=== PATIENT | male | born 1990 | race Caucasian/White ===

== ENCOUNTER 2018-01-04 02:06 | Emergency (ER) | payer BC, OTHER ==
[2018-01-04 02:28] VITALS: BP 142/83
--- NOTE | 2018-01-04 02:46 | EDM.PDOC ---
ED HPI GENERAL MEDICAL PROBLEM - General Chief Complaint: ENT Problem Stated Complaint: TOOTHACHE Time Seen by Provider: 01/04/18 02:30 Source of Information: Reports: Patient History Limitations: Reports: No Limitations - History of Present Illness INITIAL COMMENTS - FREE TEXT/NARRATIVE: 27-year-old male with left-sided jaw pain intermittently over the last several weeks has become more uncomfortable with her persistent intense pain over the left upper and lower jaw, more on the upper but radiating up towards the ear. No fever, chills or swelling, no erythema. Onset: Gradual Duration: Week(s): (Developing for the last 2 weeks but much worse over the past 12 hours) Location: Reports: Head, Face Severity: Moderate Associated Symptoms: Reports: No Other Symptoms Left Lower Tooth/Teeth Pain Score (Numeric/FACES): 10 - Related Data Allergies Allergy/AdvReac Type Severity Reaction Status Date / Time No Known Allergies Allergy Verified 01/04/18 02:21 Home Meds: Home Meds NK [No Known Home Meds] 01/04/18 [History] Past Medical History - Past Health History Medical/Surgical History: Denies Medical/Surgical History Gastrointestinal History: Reports: Other (See Below) Other Gastrointestinal History: Lacerated spleen Psychiatric History: Reports: Panic Attack - Infectious Disease History Infectious Disease History: Reports: Chicken Pox Social & Family History - Tobacco Use Smoking Status *Q: Never Smoker Second Hand Smoke Exposure: No - Caffeine Use Caffeine Use: Reports: Coffee, Energy Drinks, Soda, Tea - Recreational Drug Use Recreational Drug Use: No ED ROS ENT - Review of Systems Review Of Systems: See Below Constitutional: Denies: Fever, Chills HEENT: Denies: Ear Pain, Eye Pain, Throat Swelling, Vision Change Respiratory: Denies: Shortness of Breath GI/Abdominal: Denies: Nausea, Vomiting ED EXAM, ENT - Physical Exam Exam: See Below Exam Limited By: No Limitations General Appearance: Alert, No Apparent Distress (Looks uncomfortable but not distressed) Ears: Normal TMs (Left tympanic membrane is normal, he does have some sensitivity to percussion of the facial nerve.) Mouth/Throat: Other (Several caries are evident, no significant gingival erythema or swelling. He responds to discomfort with percussion of the second molar of the maxilla on the left side.) Course - Vital Signs Last Recorded V/S: Last Vital Signs Temp 96.9 F 01/04/18 02:26 Pulse 61 01/04/18 02:26 Resp 16 01/04/18 02:26 BP 142/83 H 01/04/18 02:26 Pulse Ox 98 01/04/18 02:26 - Re-Assessments/Exams Free Text/Narrative Re-Assessment/Exam: 01/04/18 02:45 Patient will be placed on penicillin VK 500 mg 4 times a day and also given 10 Percocet to take along with ibuprofen for pain control. I think a dental recheck in 2-3 days with dental x-rays would be warranted. Return sooner if worsening such as swelling, erythema or fever. Departure - Departure Time of Disposition: 02:52 Disposition: Home, Self-Care 01 Condition: Good Clinical Impression: Facial pain, acute - Discharge Information Instructions: Pain Without a Known Cause Referrals: PCP,None [Primary Care Provider] - Forms: ED Department Discharge Care Plan Goals: Take penicillin 4 times a day for at least the next 7-10 days, recheck with the dentist office in the next 2-4 days. Ibuprofen should help with pain and add stronger pain medication if needed. Return sooner if worsening such as swelling or fever, or worsening pain despite treatment.
== END 2018-01-04 02:52 | disposition home or self-care (01) ==
LOC: JP.ED 02:06
DX: R68.84 Jaw pain (principal)
CPT/HCPCS: 99283

== ENCOUNTER 2018-07-25 18:06 | Emergency (ER) | payer BC ==
[2018-07-25 18:18] VITALS: BP 159/93
--- NOTE | 2018-07-25 18:46 | EDM.PDOC ---
<Snehal Jeffers M - Last Filed: 07/25/18 19:43> ED HPI GENERAL MEDICAL PROBLEM - General Chief Complaint: Gastrointestinal Problem Stated Complaint: DIZZY/ ABDOMINAL PAIN Time Seen by Provider: 07/25/18 18:30 Source of Information: Reports: Patient History Limitations: Reports: No Limitations - History of Present Illness Onset: Gradual Location: Reports: Abdomen (abdominal pain moved from central to right upper quadrant) Quality: Reports: Pressure (to occipatial region of head; feeling anxious ) Improves with: Reports: None Right Lower Abdomen Pain Score (Numeric/FACES): 2 - Related Data Allergies Allergy/AdvReac Type Severity Reaction Status Date / Time No Known Allergies Allergy Verified 07/25/18 18:47 Home Meds: Home Meds NK [No Known Home Meds] 01/04/18 [History] Past Medical History - Past Health History Medical/Surgical History: Denies Medical/Surgical History HEENT History: Reports: Impaired Vision Gastrointestinal History: Reports: Other (See Below) Other Gastrointestinal History: Lacerated spleen Psychiatric History: Reports: Panic Attack - Infectious Disease History Infectious Disease History: Reports: Chicken Pox, Other (See Below) - Past Surgical History Head Surgeries/Procedures: Reports: None GI Surgical History: Reports: None Dermatological Surgical History: Reports: None Social & Family History - Tobacco Use Smoking Status *Q: Former Smoker Used Tobacco, but Quit: Yes Month/Year Tobacco Last Used: 2013 Second Hand Smoke Exposure: No - Caffeine Use Caffeine Use: Reports: Coffee - Recreational Drug Use Recreational Drug Use: No ED ROS GENERAL - Review of Systems Review Of Systems: See Below Constitutional: Reports: Weight Loss (admits to 5 pound weight loss over past month without trying) HEENT: Reports: Contact Lenses, Glasses (has begun to wear glasses over past two weeks, new to him as he usually wears contacts - now wears them 2 to 3 times per week. ) Respiratory: Reports: No Symptoms Cardiovascular: Reports: No Symptoms : Reports: Other (describes burning after urination for past few weeks and some dribbling after urination) Musculoskeletal: Reports: No Symptoms Skin: Reports: No Symptoms Neurological: Reports: No Symptoms Psychiatric: Reports: Anxiety (has tremors during physical exam...states he is presently anxious) Hematologic/Lymphatic: Reports: No Symptoms Immunologic: Reports: No Symptoms ED EXAM, GI/ABD - Physical Exam Exam: See Below Exam Limited By: No Limitations General Appearance: Alert, WD/WN, Other (fine tremors to hands noted) Eyes: Bilateral: Normal Appearance, EOMI Ears: Normal External Exam, Normal Canal, Hearing Grossly Normal, Normal TMs ( clear fluid behind right TM) Nose: Normal Inspection, Normal Mucosa, No Blood Throat/Mouth: Normal Inspection, Normal Lips, Normal Teeth, Normal Oropharynx Head: Atraumatic, Normocephalic Neck: Normal Inspection, Supple, Lymphadenopathy (L) Respiratory/Chest: No Respiratory Distress, Lungs Clear, Normal Breath Sounds, No Accessory Muscle Use, Chest Non-Tender Cardiovascular: Regular Rate, Rhythm, No Edema, No JVD, No Murmur, No Rub GI/Abdominal Exam: Normal Bowel Sounds, Soft, No Organomegaly, No Distention (Male) Exam: Normal Inspection Extremities: Normal Inspection, Normal Range of Motion, Non-Tender Neurological: Alert, Oriented, Normal Cognition, No Motor/Sensory Deficits Psychiatric: Normal Affect, Normal Mood Skin Exam: Warm, Dry, Intact, Normal Color, No Rash Course - Vital Signs Text/Narrative:: labs and UA ordered. Last Recorded V/S: Last Vital Signs Temp 96.4 F 07/25/18 18:18 Pulse 85 07/25/18 18:18 Resp 16 07/25/18 18:18 BP 159/93 H 07/25/18 18:18 Pulse Ox 98 07/25/18 18:18 - Orders/Labs/Meds Labs: Laboratory Tests 07/25/18 07/25/18 07/25/18 Range/Units 18:56 19:06 19:06 WBC 8.8 (4.5-11.0) K/uL RBC 4.93 (4.30-5.90) M/uL Hgb 14.0 (12.0-15.0) g/dL Hct 39.4 L (40.0-54.0) % MCV 80 (80-98) fL MCH 28 (27-31) pg MCHC 36 (32-36) % Plt Count 190 (150-400) K/uL Neut % (Auto) 61 (36-66) % Lymph % (Auto) 30 (24-44) % [place] % (Auto) 7 H (2-6) % Eos % (Auto) 2 (2-4) % Baso % (Auto) 0 (0-1) % Sodium 138 L (140-148) mmol/L Potassium 3.6 (3.6-5.2) mmol/L Chloride 102 (100-108) mmol/L Carbon Dioxide 28 (21-32) mmol/L Anion Gap 11.6 (5.0-14.0) mmol/L BUN 15 (7-18) mg/dL Creatinine 1.1 (0.8-1.3) mg/dL Est Cr Clr Drug Dosing 122.75 mL/min Estimated GFR (MDRD) > 60 (>60) Glucose 103 (74-106) mg/dL Calcium 9.2 (8.5-10.1) mg/dL Total Bilirubin 0.5 (0.2-1.0) mg/dL AST 21 (15-37) U/L ALT 23 (12-78) U/L Alkaline Phosphatase 69 (46-116) U/L Total Protein 7.2 (6.4-8.2) g/dL Albumin 4.1 (3.4-5.0) g/dL Globulin 3.1 (2.3-3.5) g/dL Albumin/Globulin Ratio 1.3 (1.2-2.2) TSH, Ultra Sensitive 3.400 (0.358-3.740) uIU/mL Urine Color Urine Appearance Urine pH (4.5-8.0) Ur Specific [place] (1.008-1.030) Urine Protein (NEGATIVE) mg/dL Urine Glucose (UA) (NEGATIVE) mg/dL Urine Ketones (NEGATIVE) mg/dL Urine Occult Blood (NEGATIVE) Urine Nitrite (NEGAITVE) Urine Bilirubin (NEGATIVE) Urine Urobilinogen (NORMAL) mg/dL Ur Leukocyte Esterase (NEGATIVE) Urine RBC (0-5) Urine WBC (0-5) Ur Epithelial Cells Amorphous Sediment Urine Bacteria Urine Mucus Monoscreen Negative (NEGATIVE) 07/25/18 Range/Units 19:18 WBC (4.5-11.0) K/uL RBC (4.30-5.90) M/uL Hgb (12.0-15.0) g/dL Hct (40.0-54.0) % MCV (80-98) fL MCH (27-31) pg MCHC (32-36) % Plt Count (150-400) K/uL Neut % (Auto) (36-66) % Lymph % (Auto) (24-44) % [place] % (Auto) (2-6) % Eos % (Auto) (2-4) % Baso % (Auto) (0-1) % Sodium (140-148) mmol/L Potassium (3.6-5.2) mmol/L Chloride (100-108) mmol/L Carbon Dioxide (21-32) mmol/L Anion Gap (5.0-14.0) mmol/L BUN (7-18) mg/dL Creatinine (0.8-1.3) mg/dL Est Cr Clr Drug Dosing mL/min Estimated GFR (MDRD) (>60) Glucose (74-106) mg/dL Calcium (8.5-10.1) mg/dL Total Bilirubin (0.2-1.0) mg/dL AST (15-37) U/L ALT (12-78) U/L Alkaline Phosphatase (46-116) U/L Total Protein (6.4-8.2) g/dL Albumin (3.4-5.0) g/dL Globulin (2.3-3.5) g/dL Albumin/Globulin Ratio (1.2-2.2) TSH, Ultra Sensitive (0.358-3.740) uIU/mL Urine Color Yellow Urine Appearance Clear Urine pH 6.0 (4.5-8.0) Ur Specific [place] 1.010 (1.008-1.030) Urine Protein Negative (NEGATIVE) mg/dL Urine Glucose (UA) Normal (NEGATIVE) mg/dL Urine Ketones Negative (NEGATIVE) mg/dL Urine Occult Blood Negative (NEGATIVE) Urine Nitrite Negative (NEGAITVE) Urine Bilirubin Negative (NEGATIVE) Urine Urobilinogen Normal (NORMAL) mg/dL Ur Leukocyte Esterase Negative (NEGATIVE) Urine RBC Not seen (0-5) Urine WBC Not seen (0-5) Ur Epithelial Cells Rare Amorphous Sediment Not seen Urine Bacteria Not seen Urine Mucus Not seen Monoscreen (NEGATIVE) Departure - Departure Time of Disposition: 19:43 Disposition: Home, Self-Care 01 Condition: Good Clinical Impression: Abdominal pain, Vasovagal near syncope - Discharge Information *PRESCRIPTION DRUG MONITORING PROGRAM REVIEWED*: No *COPY OF PRESCRIPTION DRUG MONITORING REPORT IN PATIENT ASIYA: No Instructions: Viral Gastroenteritis, Adult, [id number], Near-Syncope, Easy-to -Read Referrals: PCP,None [Primary Care Provider] - Forms: ED Department Discharge Care Plan Goals: Results shared with patient, normal findings. Reassurance that this episode is likely related to vasovagal response to GI issues. Patient to try bland diet for next few days. To follow up with own provider if condition worsens. <Yogesh Gupta - Last Filed: 07/25/18 22:03> Course - Re-Assessments/Exams Free Text/Narrative Re-Assessment/Exam: 07/25/18 22:01 History and exam was reviewed, nurse practitioner note read and I agree with her assessment and plan. Exam was reproduced and I discussed the findings with the patient as well as treatment plan.
== END 2018-07-25 19:56 | disposition home or self-care (01) ==
LOC: JP.ED 18:06
DX: R55 Syncope and collapse (principal); R10.9 Unspecified abdominal pain; Z87.891 Personal history of nicotine dependence
CPT/HCPCS: 36415; 80053; 81001; 84443; 85025; 86308; 99284

== ENCOUNTER 2023-03-26 07:33 | Emergency (ER) | payer SELFPAY ==
[2023-03-26 08:12] LABS: BASOPHILS ABSOLUTE AUTO 0.03 K/uL (0.00-0.10); BASOPHILS PERCENT AUTO 0.4 % (0.1-1.3); EOSINOPHILS ABSOLUTE AUTO 0.25 K/uL (0.00-0.40); EOSINOPHILS PERCENT AUTO 3.6 % (0.0-5.4); HEMOGLOBIN 14.7 g/dL (12.9-16.9); IMMATURE GRAN PERCENT AUTO 0.3 % (0.0-0.7); LYMPHOCYTES ABSOLUTE AUTO 2.88 K/uL (0.8-3.3); MEAN CORPUSCULAR HEMOGLOBIN 28.7 pg (31.6-35.5); MONOCYTES ABSOLUTE AUTO 0.52 K/uL (0.20-0.90); MONOCYTES PERCENT AUTO 7.4 % (3.3-12.6); NEUTROPHILS ABSOLUTE AUTO 3.33 K/uL (1.0-7.6); NEUTROPHILS PERCENT AUTO 47.3 % (40.0-78.1); PLATELET COUNT,PLT 209 K/uL (130-375); RED BLOOD CELL COUNT 5.12 M/uL (4.14-5.76)
[2023-03-26 08:19] LABS: IMMATURE GRAN ABSOLUTE AUTO 0.02 K/uL (0.00-0.23)
[2023-03-26 08:25] LABS: APPEARANCE,URINE CLEAR (CLEAR); BILIRUBIN,URINE NEGATIVE (NEGATIVE); COLOR,URINE YELLOW (YELLOW); GLUCOSE,URINE NEGATIVE (NEGATIVE); KETONES,URINE NEGATIVE (NEGATIVE); LEUKOCYTE ESTERASE,URINE NEGATIVE (NEGATIVE); NITRITE,URINE NEGATIVE (NEGATIVE); OCCULT BLOOD,URINE NEGATIVE (NEGATIVE); PH,URINE 5.5 (5.0-8.0); PROTEIN,URINE NEGATIVE (NEGATIVE); UROBILINOGEN,URINE 0.2 EU/dL (0.2-1.0)
[2023-03-26 08:33] LABS: A/G RATIO 1.3 (1.2-2.2); ALANINE AMINOTRANSFERASE,ALT 21 U/L (12-78); ALBUMIN 3.9 g/dL (3.4-5.0); ALKALINE PHOSPHATASE 60 U/L (46-116); ASPARTATE AMNIOTRANSFERASE,AST 22 U/L (15-37); BILIRUBIN TOTAL 0.4 mg/dL (0.2-1.0); BLOOD UREA NITROGEN,BUN 16 mg/dL (7-18); CALCIUM 8.5 mg/dL (8.5-10.1); CARBON DIOXIDE,CO2 31 mmol/L (21-32); CHLORIDE,CL 107 mmol/L (100-108); CREATININE 1.2 mg/dL (0.8-1.3); ESTIMATED GFR 82 mL/min (>60); GLUCOSE RANDOM 97 mg/dL (74-106); POTASSIUM,K 3.5 mmol/L (3.6-5.2); SODIUM,NA 141 mmol/L (140-148)
[2023-03-26 08:37] LABS: ANION GAP 6.5 mmol/L (5.0-14.0)
[2023-03-26 08:39] LABS: AMORPHOUS SEDIMENT,URINE FEW; BACTERIA,URINE NOT SEEN; EPITHELIAL CELLS,URINE RARE; MUCUS,URINE MODERATE; RBC,URINE NOT SEEN (0-5); WBC,URINE 0-5 (0-5)
[2023-03-26 09:30] VITALS: BP 147/76; PULSE 80
== END 2023-03-26 09:30 | disposition home or self-care (01) ==
LOC: JP.ED 07:33
DX: K59.04 Chronic idiopathic constipation (principal)
CPT/HCPCS: 36415; 74018; 74018-26; 80053; 81001; 83605; 83690; 85025; 99284